=== PATIENT | male | born 1965 | race African-American/Black ===

== ENCOUNTER → 2018-02-10 | Outpatient (CLI) | payer OTHER ==
--- NOTE | 2018-02-11 08:34 | CT ---
HISTORY: Sternal pain post CABG Study: CT chest without contrast Comparison: None Technique: Multiple axial images of the chest were obtained from the thoracic inlet to the upper abdo men without IV contrast. Dose reduction techniques including Automated Exposure Control (AEC) and ad justment of mA and kV were utilized. Findings: Please note evaluation is limited without IV contrast. Vessel patency not assessed. Sternotomy change s are noted. No evidence of sternal dehiscence or retrosternal fluid collection on this limited nonco ntrast exam. There is a left chest wall pacemaker and epicardial deferred later device. Cardiomegaly is noted without pericardial effusion. There is an endovascular stent graft in the aortic arch extend ing into the proximal descending thoracic aorta. There are emphysematous changes present without acut e infiltrate, effusion or pneumothorax. No mass or adenopathy is identified. Along the right anterior lateral chest wall there is lung parenchyma herniating through the intercostal space between the 4th and 5th ribs The soft tissues and osseous structures appear intact. The visualized portions of the upper abdomen a re grossly unremarkable. IMPRESSION: 1. No evidence of sternal dehiscence or retrosternal fluid collection on this limited noncontrast exa m. 2. Mild intercostal lung herniation is seen between the right anterior 4th and 5th ribs. 3. Cardiomegaly with epicardial defibrillator, pacemaker and postsurgical changes of the aorta. Reported By:
== END ==
LOC: RAD 14:53
DX: R07.2 Precordial pain (principal); Z95.810 Presence of automatic (implantable) cardiac defibrillator
CPT/HCPCS: 71250